=== PATIENT | female | born 1970 | race Hispanic/Latino ===

== ENCOUNTER 2021-12-28 16:37 | Emergency (ER) | payer OTHER ==
[2021-12-28] MEDS ORDERED: BUPIVACAINE 0.25% PF 10 ML VIAL ONE (17:49)
[2021-12-28] MEDS ORDERED: LIDOCAINE 1% MPF 5 ML VIAL ONE (17:49)
[2021-12-28] MEDS ORDERED: LIDOCAINE 1% 20 ML MDV ONE (17:51)
--- NOTE | 2021-12-28 17:53 | RAD REPORT ---
EXAM DESCRIPTION: RAD - Hand Left 3 View - 12/28/2021 5:28 pm CLINICAL HISTORY: crush injury to left small finger COMPARISON: Hand Left 3 View dated 09/04/2014 FINDINGS/IMPRESSION: No acute fracture. No malalignment. Moderate degenerative changes are present a t the base of the thumb. Bandage material on the fifth digit.
--- NOTE | 2021-12-28 19:07 | ER ---
Nurse's Notes [facility] Name: Valeria Wood Age: 51 yrs Sex: Female : 1970 Arrival Date: 12/28/2021 Time: 16:43 Bed 10 Private MD: Diagnosis: Laceration without foreign body of finger without damage to nail-left fifth finger Presentation: 12/28 16:43 Chief complaint: Patient states: [facility] sent pt via EMS to ER for smashed 5th finger ld1 to left hand. Coronavirus screen: At this time, the client does not indicate any symptoms associated with coronavirus-19. Ebola Screen: No symptoms or risks identified at this time. Initial Sepsis Screen: Does the patient meet any 2 criteria? No. Patient's initial sepsis screen is negative. Does the patient have a suspected source of infection? No. Patient's initial sepsis screen is negative. Risk Assessment: Do you want to hurt yourself or someone else? Patient reports no desire to harm self or others. Onset of symptoms was December 28, 2021. 16:43 Method Of Arrival: EMS: [facility] ld1 16:43 Acuity: RAY 4 ld1 Triage Assessment: 16:45 General: Appears in no apparent distress. comfortable, Behavior is calm, cooperative, ld1 appropriate for age. Pain: Complains of pain in palmar aspect of distal phalanx of left little finger and palmar aspect of middle phalanx of left little finger Pain does not radiate. Pain currently is 3 out of 10 on a pain scale. Quality of pain is described as. EENT: No signs and/or symptoms were reported regarding the EENT system. Neuro: Level of Consciousness is awake, alert, obeys commands, Oriented to person, place, time, situation. Cardiovascular: Capillary refill < 3 seconds Patient's skin is warm and dry. Respiratory: Airway is patent Respiratory effort is even, unlabored. GI: Abdomen is round obese. : No signs and/or symptoms were reported regarding the genitourinary system. Derm: No signs and/or symptoms reported regarding the dermatologic system. Musculoskeletal: No signs and/or symptoms reported regarding the musculoskeletal system. Injury Description: Laceration sustained to palmar aspect of distal phalanx of left little finger and palmar aspect of middle phalanx of left little finger. Historical: - PMHx: 16:45 Anemia; DYSPHAGIA; constipation; convulsions; CVA; gingivitis; Hypertension; GERD; ld1 Hemiplegia right side; psychosis; falls; Expressive language disorder; Diabetes - NIDDM; - PSHx: 16:45 None; ld1 - Immunization history:: Adult Immunizations up to date, Client reports receiving the 2nd dose of the Covid vaccine. - Social history:: Smoking status: Patient denies any tobacco usage or history of. Patient/guardian denies using alcohol. Screenin:46 Abuse screen: Denies threats or abuse. Denies injuries from another. Nutritional ld1 screening: No deficits noted. Tuberculosis screening: No symptoms or risk factors identified. Fall Risk None identified. Assessment: 16:46 Reassessment: See triage assessment. ld1 18:22 Reassessment: Patient appears in no apparent distress at this time. Patient and/or ld1 family updated on plan of care and expected duration. Pain level reassessed. Patient is alert, oriented x 3, equal unlabored respirations, skin warm/dry/pink. 18:30 Reassessment: ERP at bedside providing care. ld1 Vital Signs: 16:43 BP 125 / 80; Pulse 63; Resp 15; Temp 98.7(TE); Pulse Ox 100% on R/A; Weight 142.88 kg; ld1 Height 5 ft. 6 in. (167.64 cm); Pain 7/10; 18:22 BP 129 / 82; Pulse 75; Resp 17; Pulse Ox 100% on R/A; Pain 0/10; ld1 20:17 BP 131 / 81; Pulse 73; Resp 18 S; Pulse Ox 100% on R/A; as6 16:43 Body Mass Index 50.84 (142.88 kg, 167.64 cm) ld1 ED Course: 16:43 Patient arrived in ED. ld1 16:43 Kuldeep Wood PA is PHCP. cp 16:43 Rad Argueta MD is Attending Physician. cp 16:45 Triage completed. ld1 16:45 Arm band placed on right wrist. ld1 16:46 Patient has correct armband on for positive identification. Placed in gown. Bed in low ld1 position. Call light in reach. Side rails up X2. clinical research monitor on. Pulse ox on. NIBP on. Door closed. Noise minimized. Warm blanket given. 16:46 No provider procedures requiring assistance completed. ld1 17:30 XRAY Hand LEFT 3 View In Process Unspecified. EDMS 18:22 Aye Hollingsworth, RN is Primary Nurse. ld1 18:22 Patient did not have IV access during this emergency room visit. ld1 Administered Medications: 18:23 Drug: Lidocaine (1 %) 5 ml {Note: Administered by PA. Addie} Volume: 5 ml; Route: ld1 Infiltration; 20:16 Follow up: Response: No adverse reaction as6 18:23 Drug: Marcaine (bupivacaine) (0.5 %) 5 ml {Note: Administered by PA. Addie} ld1 Volume: 10 ml; Route: Infiltration; 20:16 Follow up: Response: No adverse reaction as6 Medication: 16:46 VIS not applicable for this client. ld1 Outcome: 19:06 Discharge ordered by . kwasi 20:17 Discharged to home via ambulance, via wheelchair. as6 20:17 Condition: stable 20:17 Discharge instructions given to patient, Instructed on discharge instructions, follow up and referral plans. wound care, Demonstrated understanding of instructions, follow-up care, wound care. 20:19 Patient left the ED. as6 Signatures: Dispatcher [employer] EDOR Kuldeep Wood PA PA cp Dibbern, Lauren, RN RN ld1 Felton Samainego RN RN as6
--- NOTE | 2021-12-28 19:07 | EDPHYS ---
Physician Documentation [facility] Name: Valeria Wood Age: 51 yrs Sex: Female : 1970 Arrival Date: 12/28/2021 Time: 16:43 Bed 10 Private MD: ED Physician Rad Argueta HPI: 12/28 18:00 This 51 yrs old Female presents to ER via EMS with complaints of Finger Injury.cp 18:00 The patient or guardian reports injury. The complaints affect the palmar aspect of cp middle phalanx of left little finger and palmar aspect of distal phalanx of left little finger. Context: resulted from a crush injury, door. Onset: The symptoms/episode began/occurred just prior to arrival. Associated signs and symptoms: The patient has no apparent associated signs or symptoms. Historical: - PMHx: 16:45 Anemia; DYSPHAGIA; constipation; convulsions; CVA; gingivitis; Hypertension; GERD; ld1 Hemiplegia right side; psychosis; falls; Expressive language disorder; Diabetes - NIDDM; - PSHx: 16:45 None; ld1 - Immunization history:: Adult Immunizations up to date, Client reports receiving the 2nd dose of the Covid vaccine. - Social history:: Smoking status: Patient denies any tobacco usage or history of. Patient/guardian denies using alcohol. ROS: 18:05 Constitutional: Negative for fever. cp 18:05 MS/extremity: Positive for injury or acute deformity, laceration, of the palmar aspect of middle phalanx of left little finger and palmar aspect of distal phalanx of left little finger, Negative for decreased range of motion, paresthesias. 18:05 Unable to obtain ROS due to baseline aphasia. cp Exam: 18:10 Constitutional: The patient appears in no acute distress, alert, awake, cp non-diaphoretic, non-toxic, well developed, well nourished, obese, uncomfortable. 18:10 Head/Face: Normocephalic, atraumatic. cp 18:10 Cardiovascular: Rate: normal, Rhythm: regular. 18:10 Respiratory: the patient does not display signs of respiratory distress, Respirations: normal, no use of accessory muscles, no retractions, labored breathing, is not present, Breath sounds: are clear throughout, no decreased breath sounds, no stridor, no wheezing. 18:10 Abdomen/GI: Inspection: obese 18:10 Musculoskeletal/extremity: Extremities: grossly normal except: noted in the palmar aspect of distal phalanx of left little finger and palmar aspect of middle phalanx of left little finger: laceration, pain, swelling, tenderness, There is no evidence of decreased ROM, ROM: full active range of motion, in the left small finger, Perfusion: the extremity is pink, with brisk capillary refill, the left small finger Sensation intact. Tendon exam: specific tendon testing normal through active and passive range of motion 18:10 Skin: injury, laceration(s), the wound is approximately 3 cm(s), of the palmar aspect of middle phalanx of left little finger and palmar aspect of distal phalanx of left little finger, that can be described as clean, no foreign body, irregular, with mild bleeding. Vital Signs: 16:43 BP 125 / 80; Pulse 63; Resp 15; Temp 98.7(TE); Pulse Ox 100% on R/A; Weight 142.88 kg; ld1 Height 5 ft. 6 in. (167.64 cm); Pain 7/10; 18:22 BP 129 / 82; Pulse 75; Resp 17; Pulse Ox 100% on R/A; Pain 0/10; ld1 20:17 BP 131 / 81; Pulse 73; Resp 18 S; Pulse Ox 100% on R/A; as6 16:43 Body Mass Index 50.84 (142.88 kg, 167.64 cm) ld1 Laceration: 19:00 Wound Repair of 3cm ( 1.2in ) subcutaneous laceration to palmar aspect of distal cp phalanx of left little finger and palmar aspect of middle phalanx of left little finger. Irregularly shaped.. Distal neuro/vascular/tendon intact. Anesthesia: Digital block administered with 5 mls of Lido/Marcaine. Wound prep: Moderate cleansing by me, Wound irrigation by me. Skin closed with 6 4-0 Prolene using interrupted sutures and sterile technique. Dressed with 4x4's. Patient tolerated well. MDM: 16:44 Patient medically screened. cp 18:00 Differential diagnosis: dislocation, open fracture, closed fracture, contusion. cp 19:05 Data reviewed: vital signs, nurses notes, radiologic studies, plain films. cp 19:05 Test interpretation: by ED physician or midlevel provider: plain radiologic studies. cp Counseling: I had a detailed discussion with the patient and/or guardian regarding: the historical points, exam findings, and any diagnostic results supporting the discharge/admit diagnosis, radiology results, the need for outpatient follow up, a family practitioner, to return to the emergency department if symptoms worsen or persist or if there are any questions or concerns that arise at home. Response to treatment: the patient's symptoms have markedly improved after treatment, and as a result, I will discharge patient. 12/28 16:43 Order name: XRAY Hand LEFT 3 View; Complete Time: 18:01 cp 12/28 18:01 Interpretation: Report reviewed. 12/28 17:40 Order name: Wound Care: please clean and irrigate laceration; Complete Time: 17:58 cp 12/28 17:40 Order name: Dressing - Wound; Complete Time: 17:58 cp 12/28 17:40 Order name: Gloves, Sterile; Complete Time: 17:58 cp 12/28 17:40 Order name: Setup Suture Tray; Complete Time: 17:58 cp 12/28 19:01 Order name: Wound dressing; Complete Time: 19:38 cp 12/28 19:01 Order name: Finger Splint; Complete Time: 19:38 cp Administered Medications: 18:23 Drug: Lidocaine (1 %) 5 ml {Note: Administered by PA. Addie} Volume: 5 ml; Route: ld1 Infiltration; 20:16 Follow up: Response: No adverse reaction as6 18:23 Drug: Marcaine (bupivacaine) (0.5 %) 5 ml {Note: Administered by PA. Addie} ld1 Volume: 10 ml; Route: Infiltration; 20:16 Follow up: Response: No adverse reaction as6 Disposition Summary: 12/28/21 19:06 Discharge Ordered Location: Home cp Problem: new cp Symptoms: have improved cp Condition: Stable cp Diagnosis - Laceration without foreign body of finger without damage to nail - left fifth fingercp Followup: cp - With: Private Physician - When: 7 - 10 days - Reason: Staple/Suture removal Forms: - Medication Reconciliation Form cp - Thank You Letter cp - Antibiotic Education cp - Prescription Opioid Use cp Signatures: Dispatcher [employer] EDSC Kuldeep Wood PA PA cp Dibbern, Lauren, RN RN ld1 Felton Samaniego RN as6
[2021-12-28 20:23] VITALS: TEMP 98.7; O2SAT 100
[2021-12-28 20:27] VITALS: BP 131/81
== END 2021-12-28 20:19 | disposition home or self-care (01) ==
LOC: ER 16:37
PROC: 0JQK0ZZ Repair Left Hand Subcutaneous Tissue and Fascia, Open Approach (ICD-10-PCS; principal; 2021-12-28)
DX: S61.217A Laceration without foreign body of left little finger without damage to nail, initial encounter (principal); W23.0XXA Caught, crushed, jammed, or pinched between moving objects, initial encounter; Y93.9 Activity, unspecified; Y92.129 Unspecified place in nursing home as the place of occurrence of the external cause
CPT/HCPCS: 99284